=== PATIENT | female | born 1970 | race Caucasian/White ===

== ENCOUNTER 2024-05-17 16:37 | Emergency (ER) | payer BC, SELFPAY ==
[2024-05-17 16:46] VITALS: BP 127/87
[2024-05-17 18:02] VITALS: BP 112/74
--- NOTE | 2024-05-17 18:13 | ED.GENMED ---
History of Present Illness
General
Chief Complaint: Abdominal Pain
Source: patient
Exam Limitations: none
Time Seen by Provider: 05/17/24 18:02
Nursing documentation reviewed up to this point in time: agreed with
History of Present Illness
History of Present Illness:
Patient to ED with complaint of lower abdominal pain. Pain started yesterday AM. Had Diverticulitis in 2017 and states pain is similar. Placed self on clear liquid diet without improvement. Reports fever and chills. SHe did not take her temp
MIld nausea. No vomiting or diarrhea. No urinary symptoms. Brought self to ED for eval.
Past History
Past History
ED Past Medical History: Hypercholesterolemia and Psychiatric
ED Past Surgical History: , Gynecological, Orthopedic and Tonsilectomy
Social History
Tobacco: Non-smoker
Alcohol: Occasional
Drug: None
Personal:
Review of Systems
Review of Systems
Allergies reviewed?: Yes
All Other Systems: ROS reviewed and negative except as documented in HPI and ROS
Constitutional: Reports fever, fatigue and chills
EENT: Reports no symptoms
Respiratory: Reports no symptoms
Cardiac: Reports no symptoms
ABD/GI: Reports abdominal pain and nausea
: Reports no symptoms
Musculoskeletal: Reports no symptoms
Skin: Reports no symptoms
Neurological: Reports no symptoms
Psychiatric: Reports no symptoms
Phy Exam
General Physical Exam
General Presentation: well appearing and mild distress
General age: appears stated age
General Skin: warm and dry
General Habitus: normal
General Mental: alert
General Hydration: appears well hydrated
Cardiovascular Exam
Cardiovascular Exam: regular rate/rhythm and no edema
Gastrointestinal Exam
Gastrointestinal Exam: normal bowel sounds, soft, no organomegaly, no pulsatile mass, non distended and no cva tenderness
Palpation: left upper quadrant: No tenderness, left lower quadrant: Moderate tenderness, right upper quadrant: No tenderness and right lower quadrant: Moderate tenderness
Musculoskeletal Exam
Musculoskeletal Exam: full ROM
Skin Exam
Skin Exam: normal color, warm/dry and no rash
Psychiatric Exam
Psychiatric Exam: normal mood/affect
Course
Orders/Labs/Results
Orders:
Orders
05/17/24 18:03
0.9% Sodium Chloride 1000 ml [Nss] 1,000 ml IV BOLUS
05/17/24 18:09
CT Abd/pel W Iv And Oral Contr Urgent
Comment:
Reason For Exam: lower abdominal pain
Iohexol [Omnipaque] See Protocol PO NOW STA
05/17/24 18:14
Complete Blood Count/With Diff Urgent
Comprehensive Metabolic Panel Urgent
Lipase Urgent
05/17/24 19:26
Urinalysis Reflex To Culture Urgent
Date Specimen was Collected: 05/17/24
Time Specimen was Collected: 19:22
Urine Microscopic Reflex Cult Urgent
05/17/24 21:35
Amoxicillin 875 mg/Clav 125 mg [Augmentin 875 mg/125 mg] 1 tablet PO NOW STA
Abnormal Lab Results
05/17/24 05/17/24
18:14 19:26
RBC 4.08 L 10^6/uL
(4.20-5.40)
Hct 34.1 L %
(37.0-47.0)
Leukocyte Esterase Rfl Trace A
(Negative)
Urine Bacteria (Reflex) Few A
(Negative)
05/17/24 18:14
05/17/24 18:14
Vital Signs
Initial and Last Documented VS:
Initial Vital Signs
Temp Pulse Resp BP Pulse Ox
98.3 F 62 18 127/87 99
05/17/24 16:46 05/17/24 16:46 05/17/24 16:46 05/17/24 16:46 05/17/24 16:46
Last Documented Vital Signs
Temp Pulse Resp BP Pulse Ox
98.3 F 60 16 132/91 97
05/17/24 16:46 05/17/24 21:42 05/17/24 21:42 05/17/24 21:42 05/17/24 21:42
*Radiology
Radiology exam reviewed: radiology read reviewed
*Pulse Oximetry
Patient hypoxic: no
*Critical Care Note
Total Time (30-74mins, 75-104mins- exclusive of procedures): Not Applicable
ED Attending Note
-
Portions of this chart may have been created with voice recognition software.� Occasional wrong word or��sound alike� substitutions may have occurred due to the inherent limitations of voice recognition software.
Discharge Plan
Departure
Patient Disposition: Home (Routine Discharge)
Date of Disposition: 05/17/24
Time of Disposition: 21:36
Patient with high blood pressure during this ER visit?: No
Condition: Good
Covid-19: Not Applicable
Discharge Problem:
Colitis
Instructions: Clear Liquid Diet, Colitis (DC)
Prescriptions:
New
amoxicillin-pot clavulanate 875-125 mg tablet
1 tab PO BID Qty: 14 0RF
No Action
multivitamin [Ptc-Uzpyrb-Xqljl] 1 EACH tablet
2 ea PO DAILY
Patient Comments:
(chewable MVI)
escitalopram oxalate [Lexapro] 5 MG tablet
7.5 mg PO DAILY
olopatadine [Patanase] 30.5 GM spray,non-aerosol
30.5 gm NS BID
Fiber Otc
2 tab PO DAILY
Unknown Muscle Relaxer
1 tab PO QPM
Vielka Control
1 tab PO DAILY
Patient Comments:
(pt takes generic for Vielka)
Referrals:
Aaron Strauss, DO [Family Provider] - Tomorrow
Activity Restrictions/Additional Instructions:
Return to the emergency department immediately for any changes in/worsening of your symptoms
Interventions
Interventions:
*Risk Screen - Suicide Last Done: 05/17/24 18:02
*General Assessment Last Done: 05/17/24 18:02
*Neglect/Abuse Screening Last Done: 05/17/24 18:02
ED- Fall Risk Assessment Last Done: 05/17/24 18:04
*ED COVID-19 Vaccine History Last Done: 05/17/24 18:02
*Nursing Disposition Last Done: 05/17/24 21:42
XV-Qbwfdi-Rzhghwwgmh Assessment Last Done: 05/17/24 18:02
Discharge Date and Time
Discharge Date/Time: 05/17/24 21:45
Print Language: LAO
[2024-05-17] MEDS: NSS 1000 IV (18:19)
[2024-05-17] MEDS: OMNIPAQUE 50 ML PO (18:19)
[2024-05-17 18:25] LABS: % Basophils 0.4 % (0-2); % Eosinophils 1.9 % (0-6); % Immature Granulocytes 0.2 % (0-0.5); % Lymphocytes 36.2 % (20.5-51.1); % Neutrophils 55.3 % (42.2-75.2); Absolute Eosinophils 0.1 10^3/uL (0-0.7); Absolute Lymphocytes 1.8 10^3/uL (1.2-3.4); Absolute Monocytes 0.3 10^3/uL (0.1-0.6); Absolute Neutrophils 2.7 10^3/uL (1.4-6.5); Hematocrit 34.1 % (37.0-47.0); Hemoglobin 12.5 g/dL (12.0-16.0); Mean Corp Hgb Conc. 36.7 g/dL (33.0-37.0); Mean Corpuscular Hgb 30.6 pg (27.0-31.0); Mean Corpuscular Volume 83.6 fL (81.0-99.0); Mean Platelet Volume 9.7 fL (7.4-10.4); Nucleated Red Blood Cells % 0 %; Platelet Count 208 10^3/uL (130-400); Red Blood Cell Count 4.08 10^6/uL (4.20-5.40); Red Cell Dist. Width 11.8 % (11.5-14.5); White Blood Cell Count 4.9 10^3/uL (4.8-10.8)
[2024-05-17 18:40] LABS: ALT (SGPT) 25 U/L (0-35); AST (SGOT) 30 U/L (14-36); Albumin 4.3 g/dl (3.5-5.0); Alkaline Phosphatase 72 U/L (38-126); Blood Urea Nitrogen 10 mg/dl (7-17); Calcium 9.3 mg/dl (8.4-10.2); Carbon Dioxide 26 mmol/L (22-30); Chloride 107 mmol/L (98-107); Glucose 98 mg/dl (70-99); Lipase 44 U/L (23-300); Potassium 4.3 mmol/L (3.5-5.1); Sodium 139 mmol/L (135-145); Total Bilirubin 0.7 mg/dl (0.2-1.3); Total Protein 6.4 g/dl (6.3-8.2); eGFR > 60.00
[2024-05-17 19:36] LABS: Urine Albumin Negative (Neg - Trace); Urine Bilirubin Negative (Negative); Urine Character Clear (Clear); Urine Color Yellow; Urine Glucose Negative (Negative); Urine Ketone Negative (Negative); Urine Leukocyte Trace (Negative); Urine Nitrite Negative (Negative); Urine Occult Blood Negative (Negative); Urine Urobilinogen Negative (Neg - 1+)
[2024-05-17 19:46] LABS: Urine Bacteria Few (Negative); Urine Red Blood Cell 0-2 /HPF (0-2); Urine Urothelial Cell 0-2 /LPF (FEW); Urine White Cell 0-2 /HPF (0-5)
[2024-05-17 20:03] VITALS: BP 124/78
[2024-05-17] MEDS: AUGMENTIN 875 MG/125 MG 1 TABLET PO (21:39)
[2024-05-17 21:42] VITALS: BP 132/91
== END 2024-05-17 21:45 | disposition home or self-care (01) ==
LOC: EMR 16:37
PROVIDERS: Nurse Practitioner; EMERGENCY PHYSICIAN Emergency Medicine; FAMILY PHYSICIAN Family Medicine
DX: K52.9 Noninfective gastroenteritis and colitis, unspecified (principal); E78.00 Pure hypercholesterolemia, unspecified
CPT/HCPCS: 99284; 74177; 80053; 81003; 81015; 83690; 85025; Q9967

== ENCOUNTER → 2024-06-06 08:52 | Outpatient (REF) | payer BC, SELFPAY | LOC: HWRAD 08:52 | PROVIDERS: ATTENDING PHYSICIAN Family Medicine | DX: Z78.0 Asymptomatic menopausal state (principal) | CPT/HCPCS: 77080 ==

== ENCOUNTER → 2024-10-25 09:34 | Outpatient (REF) | payer BC, SELFPAY | LOC: HWWDC 09:34 | PROVIDERS: ATTENDING PHYSICIAN Obstetrics & Gynecology; FAMILY PHYSICIAN Family Medicine | DX: Z12.31 Encounter for screening mammogram for malignant neoplasm of breast (principal) | CPT/HCPCS: 77063; 77067 ==

== ENCOUNTER → 2024-12-07 07:57 | Outpatient (REF) | payer BC, SELFPAY | LOC: HWRAD 07:57 | PROVIDERS: ATTENDING PHYSICIAN Family Medicine | DX: R07.81 Pleurodynia (principal) | CPT/HCPCS: 71046; 71100; 76700 ==

== ENCOUNTER 2025-04-04 13:11 | Emergency (ER) | payer BC, SELFPAY ==
[2025-04-04 13:13] VITALS: BP 125/81
[2025-04-04] MEDS: NSS 1000 IV (14:39)
[2025-04-04 14:40] VITALS: BMI 28.6
[2025-04-04 14:45] LABS: % Basophils 0.3 % (0-2); % Eosinophils 0.8 % (0-6); % Immature Granulocytes 0.3 % (0-0.5); % Lymphocytes 21.7 % (20.5-51.1); % Monocytes 8.3 % (1.7-9.3); % Neutrophils 68.6 % (42.2-75.2); Absolute Eosinophils 0.1 10^3/uL (0-0.7); Absolute Lymphocytes 1.6 10^3/uL (1.2-3.4); Absolute Monocytes 0.6 10^3/uL (0.1-0.6); Absolute Neutrophils 4.9 10^3/uL (1.4-6.5); Mean Corp Hgb Conc. 36.4 g/dL (33.0-37.0); Mean Corpuscular Hgb 30.9 pg (27.0-31.0); Mean Corpuscular Volume 85.1 fL (81.0-99.0); Mean Platelet Volume 9.5 fL (7.4-10.4); Nucleated Red Blood Cells % 0 %; Platelet Count 191 10^3/uL (130-400); Red Blood Cell Count 3.88 10^6/uL (4.20-5.40); Red Cell Dist. Width 11.9 % (11.5-14.5); White Blood Cell Count 7.1 10^3/uL (4.8-10.8)
[2025-04-04] MEDS: TORADOL 15 MG IV (14:56)
[2025-04-04 15:13] LABS: ALT (SGPT) 16 U/L (0-35); AST (SGOT) 21 U/L (14-36); Alkaline Phosphatase 49 U/L (38-126); Blood Urea Nitrogen 7 mg/dl (7-17); Calcium 9.2 mg/dl (8.4-10.2); Carbon Dioxide 26 mmol/L (22-30); Chloride 105 mmol/L (98-107); Estimated Creatinine Clearance 99 ml/min; Glucose 92 mg/dl (70-99); Lipase 29 U/L (23-300); Potassium 4.1 mmol/L (3.5-5.1); Sodium 135 mmol/L (135-145); Total Protein 6.2 g/dl (6.3-8.2); eGFR > 60.00
[2025-04-04] MEDS: ZOFRAN 4 MG IV (15:15)
[2025-04-04] MEDS: DILAUDID 0.5 MG IV (15:15)
--- NOTE | 2025-04-04 16:20 | ED.GENMED ---
History of Present Illness
General
Chief Complaint: Abdominal Pain
Time Seen by Provider: 04/04/25 14:14
History of Present Illness
History of Present Illness:
Note:
CHIEF COMPLAINT(S)
Severe abdominal pain, primarily in the left lower quadrant.
HISTORY OF PRESENT ILLNESS
The patient is a 55-year-old female with a history of diverticulitis, presenting with a severe exacerbation of abdominal pain, primarily located on the left lower abdominal quadrant. The pain intensified significantly yesterday morning, although she
has experienced tenderness for a couple of weeks. Associated symptoms include nausea without vomiting and constipation progressing to the passage of mucus. She denied any rectal bleeding. Relief was noted after administration of dicyclomine taken at
7 PM last night during an episode of severe pain. On physical examination, there is tenderness in the left lower quadrant; however, rebound tenderness is not notably painful. The primary care provider referred her here for further evaluation,
suspecting a serious condition, and thus necessitated a transfer for a computed tomography scan to rule out complications such as perforation or abscess formation.
EXTERNAL RECORDS REVIEWED
The patients primary care physicians evaluation was referenced, indicating referral and previous observations of worsening abdominal symptoms upon physical examination.
PHYSICAL EXAM
- Abdominal examination reveals moderate tenderness upon palpation in the left lower quadrant, with less pronounced tenderness on the right side.
- Noticeable vesicular rash with erythema on the anterior chest wall, crossing the midline, suggestive of a possible shingles rash, although it seems widespread.
- Nursing notes reviewed and vital signs reviewed.
PROBLEM LIST
- Acute:
- Severe left lower quadrant abdominal pain potentially due to diverticulitis exacerbation.
- Rash with vesicular eruption on the chest, concerns for possible shingles.
PLAN
- Perform a computed tomography scan to investigate potential severe complications related to diverticulitis, such as perforation or abscess.
- Administer a low dose of narcotic analgesia for managing acute pain as per patients preference.
- Consider topical belp-mev-nzkvgsv antifungal with steroid cream for the rash, although it appears not related to the current acute abdominal complaint.
DIFFERENTIAL DIAGNOSIS
The Differential Diagnosis includes, in no particular order and is not limited to:
1. Diverticulitis exacerbation
2. Perforated diverticulum
3. Diverticular abscess
4. Irritable bowel syndrome
5. Ischemic colitis
6. Colon cancer
7. Small bowel obstruction
8. Shingles
9. Gastroenteritis
10. Inflammatory bowel disease
CARE-UPDATE
04/04/25 - 16:16
Reviewed radiologists interpretation of CTME gene indicating severe acute sigmoid colitis. No evidence of complications, including bowel obstruction, abscess, or perforation. Continue monitoring for any complications and manage symptoms accordingly.
CARE-UPDATE
04/04/25 - 16:[address] scan reveals inflammation in the sigmoid colon, possibly indicating colitis or diverticulitis. The condition appears severe, but there are no signs of bowel obstruction, perforation, or abscess, and the white blood cell count is normal.
Hospital admission is not deemed necessary at this time, and surgery is not required. The patient will be treated with Augmentin, an antibiotic, and managed as an outpatient. A dose will be administered immediately, and the patient will receive a
prescription to continue the medication. Follow-up with their regular GI doctor, Dr. Freeman, is advised. Discharge paperwork will be prepared. Appears more comfortable.
Past History
Past History
ED Past Medical History: Hypercholesterolemia and Psychiatric
ED Past Surgical History: , Gynecological, Orthopedic and Tonsilectomy
Social History
Tobacco: Non-smoker
Alcohol: Occasional
Drug: None
Personal:
Phy Exam
Physical Exam
Physical Exam:
See HPI
Course
Orders/Labs/Results
Orders:
Orders
04/04/25 14:21
0.9% Sodium Chloride 1000 ml [Nss] 1,000 ml IV BOLUS
04/04/25 14:23
CT Abd/pelvis W Iv Cont Urgent
Comment:
Reason For Exam: worsening LLQ pain
04/04/25 14:38
Complete Blood Count/With Diff Urgent
Comprehensive Metabolic Panel Urgent
Lipase Urgent
04/04/25 14:51
Ketorolac [Toradol] 15 mg IV NOW STA
04/04/25 15:11
HYDROmorphone [Dilaudid] 0.5 mg IV NOW STA
Ondansetron Injectable [Zofran] 4 mg IV NOW STA
04/04/25 16:20
Amoxicillin 875 mg/Clav 125 mg [Augmentin 875 mg/125 mg] 1 tablet PO NOW STA
Abnormal Lab Results
04/04/25
14:38
RBC 3.88 L 10^6/uL
(4.20-5.40)
Hct 33.0 L %
(37.0-47.0)
Total Protein 6.2 L g/dl
(6.3-8.2)
04/04/25 14:38
04/04/25 14:38
Vital Signs
Initial and Last Documented VS:
Initial Vital Signs
Temp Pulse Resp BP Pulse Ox
36.9 C 70 20 125/81 99
04/04/25 13:13 04/04/25 13:13 04/04/25 13:13 04/04/25 13:13 04/04/25 13:13
Last Documented Vital Signs
Temp Pulse Resp BP Pulse Ox
36.9 C 70 20 125/81 99
04/04/25 13:13 04/04/25 13:13 04/04/25 13:13 04/04/25 13:13 04/04/25 13:13
*Critical Care Note
Total Time (30-74mins, 75-104mins- exclusive of procedures): Not Applicable
ED Attending Note
-
Portions of this chart may have been created with voice recognition software.� Occasional wrong word or��sound alike� substitutions may have occurred due to the inherent limitations of voice recognition software.
Discharge Plan
Departure
Patient Disposition: Home (Routine Discharge)
Date of Disposition: 04/04/25
Time of Disposition: 16:18
Patient with high blood pressure during this ER visit?: Yes
Discharge Problem:
Colitis
Instructions: Colitis, BLOOD PRESSURE
Prescriptions:
New
amoxicillin-pot clavulanate 875-125 mg tablet
1 tab PO BID Qty: 14 0RF
No Action
multivitamin [Kre-Yveele-Qyoby] 1 EACH tablet
2 ea PO DAILY
Patient Comments:
(chewable MVI)
escitalopram oxalate [Lexapro] 5 MG tablet
7.5 mg PO DAILY
olopatadine [Patanase] 30.5 GM spray,non-aerosol
30.5 gm NS BID
Fiber Otc
2 tab PO DAILY
Unknown Muscle Relaxer
1 tab PO QPM
Vielka Control
1 tab PO DAILY
Patient Comments:
(pt takes generic for Vielka)
amoxicillin-pot clavulanate 875-125 mg tablet
1 tab PO BID Qty: 14 0RF
Referrals:
Aaron Strauss DO [Family Provider, Family Practice]
Activity Restrictions/Additional Instructions:
Your CAT scan shows signs of colitis. We have started you on Augmentin. Return here if worse or other concerns. Follow-up with Dr. Freeman.
Interventions
Interventions:
*Risk Screen - Suicide Last Done: 04/04/25 13:13
*General Assessment Last Done: 04/04/25 13:13
*Neglect/Abuse Screening Last Done: 04/04/25 13:13
VY-Yuetni-Zgleijvvxf Assessment Last Done: 04/04/25 14:40
Discharge Date and Time
Print Language: INDONESIAN
[2025-04-04] MEDS: AUGMENTIN 875 MG/125 MG 1 TABLET PO (16:30)
== END 2025-04-04 16:56 | disposition home or self-care (01) ==
LOC: EMR 13:11
PROVIDERS: EMERGENCY PHYSICIAN Emergency Medicine; FAMILY PHYSICIAN Family Medicine
DX: R10.9 Unspecified abdominal pain (principal); E78.00 Pure hypercholesterolemia, unspecified; K52.9 Noninfective gastroenteritis and colitis, unspecified
CPT/HCPCS: 99284; 96374; 96375; 96361; 74177; 80053; 83690; 85025; Q9967

== ENCOUNTER 2025-06-01 06:33 | Day surgery (SDC) | payer BC, SELFPAY | END 2025-06-01 14:24 | disposition home or self-care (01) | LOC: GI 06:33 | PROVIDERS: ATTENDING PHYSICIAN Internal Medicine | DX: Z12.11 Encounter for screening for malignant neoplasm of colon (principal); K57.30 Diverticulosis of large intestine without perforation or abscess without bleeding; K64.9 Unspecified hemorrhoids; K63.5 Polyp of colon; Z86.0101 Personal history of adenomatous and serrated colon polyps | CPT/HCPCS: 45385; 45380; 88305 ==